=== PATIENT | female | born 1980 | race Asian ===

== ENCOUNTER 2024-12-02 14:30 | Emergency (ER) | payer MEDICAID ==
[~2024-12-02] VITALS: Ht 157.5 cm; Wt 90.9 kg
[2024-12-02 14:37] VITALS: BP 120/61; PULSE 102; RESP 18; TEMP 97.9; O2SAT 99
[2024-12-02] MEDS ORDERED: FENO160T14 PO (14:48)
[2024-12-02] MEDS ORDERED: GABA-1181 PO (14:48)
[2024-12-02] MEDS ORDERED: SIMV-261 PO (14:48)
[2024-12-02] MEDS ORDERED: ALBU18HF12 IH (14:48)
[2024-12-02] MEDS ORDERED: BUDE10.27 IH (14:48)
[2024-12-02] MEDS ORDERED: TIRZ2.5P3 SQ (14:48)
[2024-12-02] MEDS ORDERED: DICL100G60 TP (14:51)
[2024-12-02] MEDS ORDERED: CETI10TA58 PO (14:51)
[2024-12-02] MEDS ORDERED: FENO200C28 PO (14:51)
[2024-12-02] MEDS ORDERED: ACET-2247 PO (16:07)
[2024-12-02] MEDS ORDERED: IBUP-1492 PO (16:07)
== END 2024-12-02 17:48 | disposition home or self-care (01) ==
LOC: EMS 14:30
DX: S82.852A Displaced trimalleolar fracture of left lower leg, initial encounter for closed fracture (principal); E03.9 Hypothyroidism, unspecified; E78.00 Pure hypercholesterolemia, unspecified; F17.210 Nicotine dependence, cigarettes, uncomplicated; G89.29 Other chronic pain; J45.909 Unspecified asthma, uncomplicated; Z79.51 Long term (current) use of inhaled steroids; Z79.899 Other long term (current) drug therapy; X50.1XXA Overexertion from prolonged static or awkward postures, initial encounter; Y93.01 Activity, walking, marching and hiking; Y92.89 Other specified places as the place of occurrence of the external cause; Y99.8 Other external cause status
CPT/HCPCS: 29515; 99283